=== PATIENT | female | born 1960 | race Caucasian/White ===

== ENCOUNTER → 2017-03-21 | Outpatient (CLI) | payer OTHER | LOC: FIMAGING 08:15 | PROVIDERS: ATTEND Family Medicine | DX: Z12.31 Encounter for screening mammogram for malignant neoplasm of breast (principal) | CPT/HCPCS: G0202 ==

== ENCOUNTER → 2017-08-22 | Outpatient (CLI) | payer OTHER | LOC: BMCIMAGING 11:48 → EDSTATUS 11:49 → BMCIMAGING 11:50 | PROVIDERS: ATTEND Registered Nurse General Practice | DX: R93.6 Abnormal findings on diagnostic imaging of limbs (principal); M18.12 Unilateral primary osteoarthritis of first carpometacarpal joint, left hand ==

== ENCOUNTER → 2018-05-29 | Outpatient (CLI) | payer OTHER | LOC: BMCIMAGING 08:14 | PROVIDERS: ATTEND Family Medicine | DX: Z12.31 Encounter for screening mammogram for malignant neoplasm of breast (principal) ==